=== PATIENT | female | born 1970 | race Caucasian/White ===

== ENCOUNTER 2018-01-24 13:11 | Observation (INO) | payer MEDICAID ==
[2018-01-24 14:46] LABS: URINE BLOOD (Dip) POC 3+ (NEGATIVE); URINE GLUCOSE (Dip) POC Negative (NEGATIVE); URINE KETONES (Dip) POC Negative (NEGATIVE); URINE LEUKOCYTE EST (Dip) POC Negative (NEGATIVE); URINE NITRITE (Dip) POC Negative (NEGATIVE); URINE TOTAL PROTEIN POC 1+ (NEGATIVE)
[2018-01-24 14:46] LABS: URINE PH (Dip) POC 5.5 (5.0-8.5)
[2018-01-24] MEDS: ONDANSETRON (ODT) 4 MG TAB ODT (14:55)
[2018-01-24] MEDS: DIAZEPAM 5 MG TAB PO ×2 (14:55→17:32)
[2018-01-24] MEDS: MECLIZINE 12.5 MG TAB PO ×2 (14:56→22:25)
[2018-01-24] MEDS: SOD CHLORIDE 0.9% 1,000 ML IV ×2 (14:57→15:53)
[2018-01-24] MEDS: KETOROLAC 30 MG INJ IV (15:44)
[2018-01-24] MEDS: PROCHLORPERAZINE 5 MG TAB PO (17:45)
[2018-01-24] MEDS: SOD CHLORIDE 0.9% 100 ML (18:34)
[2018-01-24] MEDS: IOHEXOL 100 ML (18:34)
[2018-01-24 19:16] LABS: ADD MAN DIFF? NO
[2018-01-24 19:25] LABS: WHITE BLOOD COUNT 13.7 10^3/ul (4.8-10.8)
[2018-01-24 19:25] LABS: BASOPHILS % 0.3 % (0.0-2.0); EOSINOPHILS % 0.1 % (0.0-7.0); HEMATOCRIT 34.5 % (37.0-47.0); HEMOGLOBIN 11.4 g/dl (12.0-16.0); LYMPHOCYTES # 2.9 10^3/ul (0.8-2.9); LYMPHOCYTES % 21.4 % (15.0-51.0); MEAN CORPUSCULAR HEMOGLOBIN 29.3 pg (29.0-33.0); MEAN CORPUSCULAR VOLUME 88.7 fl (82.0-101.0); MEAN PLATELET VOLUME 10.5 fl (7.4-10.4); MONOCYTE # 0.6 10^3/ul (0.3-0.9); MONOCYTES % 4.7 % (0.0-11.0); NEUTROPHILS % 73.2 % (39.0-77.0); PLATELET COUNT 329 10^3/UL (140-415); RED BLOOD COUNT 3.89 10^6/ul (4.20-5.40); RED CELL DISTRIBUTION WIDTH 15.4 % (11.5-14.5)
[2018-01-24] MEDS: ONDANSETRON 4 MG INJ IV ×2 (19:57→22:23)
[2018-01-24 19:59] LABS: ANION GAP 14 (8-16); BLOOD UREA NITROGEN 9 mg/dl (7-20); CALCIUM 8.1 mg/dl (8.4-10.2); CARBON DIOXIDE 18 mmol/L (21-31); CHLORIDE 113 mmol/L (97-110); CREATININE 0.52 mg/dl (0.44-1.00); GLUCOSE 91 mg/dl (70-220); POTASSIUM 3.5 mmol/L (3.5-5.1); SODIUM 141 mmol/L (135-144)
[2018-01-24] MEDS ORDERED: ONDANSETRON 4 MG INJ IV (20:00)
[2018-01-24] MEDS ORDERED: ACETAMINOPHEN 325 MG TAB PO (20:00)
[2018-01-24] MEDS ORDERED: DOCUSATE SODIUM 100 MG CAP PO (20:30)
[2018-01-24] MEDS ORDERED: NACL 0.9% 3 ML SYG IV (20:30)
[2018-01-24] MEDS ORDERED: BISACODYL (EC) 5 MG TAB PO (20:30)
[2018-01-24] MEDS ORDERED: MECLIZINE 25 MG TAB PO (21:00)
[2018-01-24] MEDS: LORAZEPAM 2 MG INJ IV (21:14)
[2018-01-25 06:39] LABS: ADD MAN DIFF? NO
[2018-01-25 06:43] LABS: BASOPHIL # 0.1 10^3/ul (0.0-0.1); BASOPHILS % 0.5 % (0.0-2.0); EOSINOPHILS # 0.1 10^3/ul (0.0-0.5); EOSINOPHILS % 0.9 % (0.0-7.0); HEMATOCRIT 32.8 % (37.0-47.0); HEMOGLOBIN 10.7 g/dl (12.0-16.0); LYMPHOCYTES # 3.8 10^3/ul (0.8-2.9); MEAN CORPUSCULAR HEMOGLOBIN 29.2 pg (29.0-33.0); MEAN CORPUSCULAR HGB CONC 32.6 g/dl (32.0-37.0); MEAN CORPUSCULAR VOLUME 89.4 fl (82.0-101.0); MONOCYTE # 0.6 10^3/ul (0.3-0.9); MONOCYTES % 5.4 % (0.0-11.0); NEUTROPHIL # 6.9 10^3/ul (1.6-7.5); NEUTROPHILS % 59.9 % (39.0-77.0); PLATELET COUNT 329 10^3/UL (140-415); RED BLOOD COUNT 3.67 10^6/ul (4.20-5.40); RED CELL DISTRIBUTION WIDTH 15.7 % (11.5-14.5)
[2018-01-25 06:43] LABS: WHITE BLOOD COUNT 11.5 10^3/ul (4.8-10.8)
[2018-01-25 06:56] LABS: HEMOGLOBIN A1C 5.8 % (0-5.9)
[2018-01-25 07:17] LABS: IRON 122 ug/dl (35-150)
[2018-01-25 07:21] LABS: ALANINE AMINOTRANSFERASE 15 IU/L (13-69); ALBUMIN 3.3 g/dl (3.3-4.9); ALBUMIN/GLOBULIN RATIO 1.03; ALKALINE PHOSPHATASE 45 IU/L (42-121); ANION GAP 13 (8-16); ASPARTATE AMINO TRANSFERASE 15 IU/L (15-46); BILIRUBIN,INDIRECT 0.5 mg/dl (0-1.1); BILIRUBIN,TOTAL 0.5 mg/dl (0.2-1.3); BLOOD UREA NITROGEN 11 mg/dl (7-20); CALCIUM 8.3 mg/dl (8.4-10.2); CARBON DIOXIDE 22 mmol/L (21-31); CHLORIDE 113 mmol/L (97-110); CHOL/HDL RATIO 3.9 RATIO; CHOLESTEROL 127 mg/dl (100-200); CREATININE 0.68 mg/dl (0.44-1.00); GLUCOSE 84 mg/dl (70-220); HDL CHOLESTEROL 32 mg/dl (34-88); LDL CHOLESTEROL,CALCULATED 73 mg/dl; MAGNESIUM 1.8 mg/dl (1.7-2.5); POTASSIUM 3.5 mmol/L (3.5-5.1); SODIUM 144 mmol/L (135-144); TOTAL PROTEIN 6.5 g/dl (6.1-8.1); TRIGLYCERIDES 112 mg/dl (0-149)
[2018-01-25 07:26] LABS: % IRON SATURATION 36 % SAT (22-52); TOTAL IRON BINDING CAPACITY 341 ug/dl (241-421)
[2018-01-25] MEDS: MECLIZINE 12.5 MG TAB PO ×3 (09:13→20:27)
[2018-01-25] MEDS: ASPIRIN (EC) 325 MG TAB PO (12:25)
[2018-01-25] MEDS: ATORVASTATIN 40 MG TAB PO (20:27)
[2018-01-26] MEDS: ASPIRIN (EC) 325 MG TAB PO (08:24)
[2018-01-26] MEDS: MECLIZINE 12.5 MG TAB PO (11:42)
[2018-01-26] MEDS: ACETAMINOPHEN 325 MG TAB PO ×2 (13:52→22:41)
[2018-01-26] MEDS: ATORVASTATIN 40 MG TAB PO (20:11)
[2018-01-27] MEDS: SOD CHLORIDE 0.9% 500 ML IV (03:05)
[2018-01-27] MEDS: ASPIRIN (EC) 325 MG TAB PO (08:24)
== END 2018-01-27 11:26 | disposition home or self-care (01) ==
LOC: FTE 13:11 → PP2 19:48
PROVIDERS: Family Medicine
DX: H81.10 Benign paroxysmal vertigo, unspecified ear (principal); I77.3 Arterial fibromuscular dysplasia
CPT/HCPCS: 70450; 70496; 70498; 70551; 80048; 80053; 80061; 81003; 81025; 83036; 83540; 83735; 84443; 85025; 96374; 99285-25